=== PATIENT | male | born 1935 | race Caucasian/White ===

== ENCOUNTER 2017-09-18 01:35 | Emergency (ER) | payer OTHER ==
[2017-09-18 01:42] VITALS: BP 132/100
--- NOTE | 2017-09-18 02:10 | EDPHY ---
H & P Time Seen by Provider: 09/18/17 01:45 HPI/ROS: CHIEF COMPLAINT: Vision problems History by patient HISTORY OF PRESENT ILLNESS: 82-year-old man with a history of bilateral retinal correction and cataracts presents complaining of "harris"vision in his upper visual field of his left eye only. He says he 1st noted the symptoms around 5:00 p.m. When he was getting ready to go out to dinner. He he denies a sudden flash of light or new floaters but said that he realized there was this area in his upper field of vision that was somewhat harris or foggy. He was able to drive and go out to dinner. 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 He called his doughnut maker, Dr. Cifuentes and they scheduled him for an appointment tomorrow. Tonight he woke up to go to the bathroom and thought that maybe that harris area had turned black prompting him to seek medical attention. On arrival here he states that in fact the area is still harris and that symptoms have not progressed or changed since they began earlier today. Patient denies any pain in the eye. There is no foreign body sensation. He denies any new floaters. He denies any black curtain like symptoms or progressive field cut. He denies any other associated symptoms such as difficulty speaking, swallowing, double vision, focal numbness or weakness. He takes a baby aspirin a day. He did have a fall earlier today when he tripped while carrying a duffle bag and hit his shoulder, but did not his head her eye or lose consciousness. He normally wears glasses. REVIEW OF SYSTEMS: As in HPI, and all other systems reviewed and are negative Smoking Status: Former smoker Physical Exam: General: Alert, well-appearing Head: Normocephalic, atraumatic Pupils: Equal round reactive to light, extraocular movements intact, no nystagmus, no afferent pupillary defect Lids: Within normal limits Conjunctiva: No redness or swelling Fundoscopy: Retina Poorly visualized bilaterally Visual tineo: Intact in all quadrants in both eyes Neurologic: Awake alert oriented x3, cranial nerves 2-12 intact, no pronator drift, strength 5/5 equal bilaterally in upper and lower extremities, normal gait, heel to rico intact, sensation intact throughout, DTRs within normal limits Constitutional: Initial Vital Signs Temperature (C) 36.4 C 09/18/17 01:39 Heart Rate 58 L 09/18/17 01:39 Respiratory Rate 16 09/18/17 01:39 Blood Pressure 132/100 H 09/18/17 01:39 O2 Sat (%) 92 09/18/17 01:39 O2 Delivery Mode Room Air Allergies/Adverse Reactions: No Known Allergies Allergy (Unverified 10/16/12 11:11) Home Medications: Medication Instructions Recorded Antiinflammatory Rx 10/16/12 Atorvastatin Calcium [Lipitor 10 10 mg PO DAILY 10/16/12 mg (RX)] Cetirizine [ZyrTEC 10 mg (RX)] 10 mg PO DAILY 10/16/12 traZODone [traZODONE 50MG (RX)] 50 mg PO HS #15 tab 10/16/12 MDM/Departure - [facility] ED Course/Re-evaluation: 82-year-old man with prior retinal detachment and cataract surgery presents with harris or foggy area vision in his upper visual field which has been ongoing since 5:00 p.m. Yesterday. Patient has normal visual acuity in both eyes and no obvious field cuts. I am unable to get adequate funduscopic exam, however given his lack of significant visual impairment with his symptoms and the fact that he has a appointment pending tomorrow with his doughnut maker at this time I do not think there is any acute eye emergency that requires more urgent ophtho evaluation in the next 6 hr until he can discuss further with his doughnut maker. I recommend the patient keeps his appointment tomorrow and call to discuss his symptoms again with the office to see if they think he needs to be seen sooner than his scheduled appointment at 3:00 p.m. Patient understands and is agreeable to this plan. - Depart Disposition: Home, Routine, Self-Care Clinical Impression: Vision problem Condition: Fair Additional Instructions: You were seen by Dr. Bettina Malone today. The cause of your visual and problem is unclear. I recommend you see your doughnut maker, Dr. Cifuentes, tomorrow. Keep your scheduled appointment for 3: 00 p.m. Tomorrow but call 1st thing in the morning to see if the doughnut maker thinks he should see you earlier than 3:00 p.m, especially if your symptoms worsen or change. Return for any worsening or new concerns. Referrals: Doe Cifuentes MD [Medical Doctor] - As per Instructions
== END 2017-09-18 02:14 | disposition home or self-care (01) ==
LOC: CED 01:35
DX: H53.9 Unspecified visual disturbance (principal); Z87.891 Personal history of nicotine dependence